=== PATIENT | male | born 1945 | race Caucasian/White ===

== ENCOUNTER → 2024-08-22 07:19 | Outpatient (REF) | payer MEDICARE, OTHER, SELFPAY ==
[2024-08-22 10:49] LABS: PSA, Total - Diagnostic 3.14 ng/ml (0.0-4.0)
== END ==
LOC: REG 07:19
PROVIDERS: ATTENDING PHYSICIAN Specialist; FAMILY PHYSICIAN Family Medicine
DX: R97.20 Elevated prostate specific antigen [PSA] (principal)
CPT/HCPCS: 36415; 84153

== ENCOUNTER → 2025-08-28 10:05 | Outpatient (REF) | payer MEDICARE, OTHER, SELFPAY ==
[2025-08-28 12:17] LABS: PSA, Total - Diagnostic 2.21 ng/ml (0.0-4.0)
== END ==
LOC: REG 10:05
PROVIDERS: ATTENDING PHYSICIAN Specialist; FAMILY PHYSICIAN Family Medicine
DX: R97.20 Elevated prostate specific antigen [PSA] (principal)
CPT/HCPCS: 36415; 84153